=== PATIENT | male | born 1955 | race Caucasian/White ===

== ENCOUNTER → 2019-02-14 11:14 | Outpatient (CLI) | payer OTHER, SELFPAY ==
--- NOTE | 2019-02-14 11:18 | DI.MRI.S_ITS ---
PROCEDURE: MR HEAD/BRAIN WO CON INDICATIONS: POST CONCUSSION HEADACHE TECHNIQUE: Noncontrast axial T1 spin echo, axial T2 fast spin echo, sagittal and axial FLAIR, coronal T2 fast spin echo, axial gradient echo, axial diffusion and ADC through the brain. COMPARISON: None. FINDINGS: Image quality: Excellent. CSF Spaces: Basal cisterns are patent. No extra-axial fluid collections. Ventricles are normal in size and shape. Brain: No intracranial masses or hemorrhage. Mullins/white matter interface is normal. Brainstem appears normal. Diffusion-weighted images demonstrate no acute ischemic insult. No chronic ischemic insults. Normal intravascular flow voids are present. Skull and face: Calvarium has normal marrow signal. Orbits appear normal. Sinuses: Sinuses and mastoids are clear. IMPRESSION: No trauma found. Dictated by: Ace Calles M.D. on 02/14/2019 at 12:39 Approved by: Ace Calles M.D. on 02/14/2019 at 12:44
== END ==
PROVIDERS: Visit Provider Family Medicine
DX: G44.309 Post-traumatic headache, unspecified, not intractable (principal)
CPT/HCPCS: 70551